=== PATIENT | female | born 1960 | race Caucasian/White ===

== ENCOUNTER 2016-07-03 10:03 | Day surgery (SDC) | payer OTHER ==
[~2016-07-03 10:03] MED LIST: LACTATED RINGERS 1,000 ML IV.SOLN IV ONE; LIDOCAINE HCL/PF 2% 100 MG/5 ML VIAL IJ ONE; PROPOFOL 200 MG/20 ML VIAL IV ONE; SALINE FLUSH 10 ML DISP.SYRIN IVF ONE
[2016-07-03 13:49] VITALS: BP 114/66
--- NOTE | 2016-07-03 18:53 | Operative Note ---
SURGEON: Micah Zamora MD ANESTHESIA: MAC anesthesia. ESTIMATED BLOOD LOSS: None. COMPLICATIONS: None. FINDINGS: Normal colonoscopy. PREOPERATIVE DIAGNOSIS: Screening colonoscopy. POSTOPERATIVE DIAGNOSIS: Normal colonoscopy. PROCEDURE PERFORMED: Colonoscopy. DESCRIPTION OF PROCEDURE: The patient was brought to the endoscopy suite and placed in the left lateral decubitus position. A rectal exam was performed which was normal. The colonoscope was inserted and passed easily to the cecum. The appendiceal orifice and ileocecal valve were identified. The prep was excellent. The colonoscope was slowly retracted being careful to inspect all cornejo. No polyps or other lesions were found. The colonoscope was removed. The patient tolerated the procedure well. RECOMMENDATIONS: I recommend a repeat colonoscopy in 10 years. LELE
== END 2016-07-03 14:15 | disposition home or self-care (01) ==
LOC: OPSURG 10:03
PROVIDERS: ATTEND Colon & Rectal Surgery
DX: Z12.11 Encounter for screening for malignant neoplasm of colon (principal)
CPT/HCPCS: 45378; J2001; J2704; J7120; S1016